=== PATIENT | female | born 1960 | race Caucasian/White ===

== ENCOUNTER 2018-07-18 15:52 | Outpatient (REF) | payer OTHER, SELFPAY ==
[2018-07-18 20:54] LABS: ALT 101 U/L (12-78); AST 73 U/L (15-37); Alkaline Phosphatase 181 U/L (46-116); Anion Gap 10.3 mmol/L (3-11); BUN 12 mg/dL (7-18); Bilirubin, Total 0.4 mg/dL (0.2-1.0); CO2 25.7 mmol/L (21.0-32.0); CREATININE 0.91 mg/dL (0.55-1.02); Calcium 9.2 mg/dL (8.5-10.1); Chloride 105 mmol/L (98-107); Cholesterol 226 mg/dL (50-200); HDL Cholesterol 55 mg/dL (40-60); LDL CHOLESTEROL 147 mg/dL (<100); Sodium 141 mmol/L (136-145); Total Protein 7.8 g/dL (6.4-8.2); Triglyceride 207 mg/dL (30-150)
[2018-07-18 21:51] LABS: Glucose 84 mg/dL (70-100)
== END 2018-07-18 16:12 ==
LOC: NCHCN 15:52
PROVIDERS: PCP Specialist/Technologist Athletic Trainer; Visit Provider Specialist/Technologist Athletic Trainer
DX: R74.0 Nonspecific elevation of levels of transaminase and lactic acid dehydrogenase [LDH] (principal); E78.5 Hyperlipidemia, unspecified; R94.8 Abnormal results of function studies of other organs and systems; Z79.899 Other long term (current) drug therapy
CPT/HCPCS: 80053; 80061; 83721; 83735

== ENCOUNTER 2018-08-14 06:18 | Emergency (ER) | payer OTHER, SELFPAY ==
[2018-08-14 06:20] VITALS: BP 177/89; PULSE 90; RESP 20; TEMP 36.6; O2SAT 99
[2018-08-14 06:29] LABS: Bilirubin Negative (Negative); Blood Negative (Negative); Clarity Sl Cloudy; Glucose Negative (Negative); Ketones Negative (Negative); Leukocyte Esterase Negative (Negative); Nitrite Negative (Negative); Specific Gravity >= 1.030 (1.005-1.025); Urobilinogen 0.2 EU/dL (Up TO 0.2); pH 5.5 (5-8)
--- NOTE | 2018-08-14 06:57 | DI.CT_ITS ---
SYMPTOMS/DIAGNOSIS: LT FLANK PAIN NONCONTRAST CT ABDOMEN AND PELVIS: Comparison is made with noncontrast enhanced exam dated 4Aug17. The liver is mildly enlarged and shows fatty infiltration. There is no biliary dilatation. A small hypodensity is again noted at the dome of the right lobe. The gallbladder , spleen, pancreas and right adrenal are unremarkable. There is a stable tiny left adrenal adenoma and small bilateral renal cysts. No renal calculi or hydronephrosis is seen. The bladder is nearly empty. The patient is status post appendectomy and hysterectomy. No bowel dilatation or inflammatory changes are seen. There is mild diverticulosis but no evidence of diverticulitis. The aorta again shows calcification. The lung bases are clear. IMPRESSION: No acute abnormality is identified. Incidental findings as mentioned above.
--- NOTE | 2018-08-14 06:58 | W.ED.GENAD ---
Discharge Plan Disposition Patient Disposition: HOME Condition: Good Discharge Details Chief Complaint: FlankPain Clinical Impression: Abdominal pain Primary Care Provider: Fareed Durant ED Provider: Anup Mallory Meds and New Rx's Prescriptions: Continue aspirin [Aspir-81] 81 MG tablet,delayed release (DR/EC) 81 mg PO DAILY RF: 0 amlodipine [Norvasc] 10 MG tablet 10 mg PO DAILY RF: 0 hydroxyzine HCl 25 MG tablet 25 mg PO TID PRN PRNRF: 0 loratadine 10 MG tablet 10 mg PO DAILY Qty: 30 RF: 0 Discharge Instructions Instructions: Abdominal Pain (ED) Additional Instructions: Go home and rest today. Drink plenty of fluids to stay hydrated. Use Tylenol if needed for pain. Follow-up with primary care next week if not better. Return to ED if fever, worsening, persistent persistent vomiting. Referrals: Fareed Durant [Primary Care Provider] - Medical Decision Making Patient presenting with complaint of left abdominal pain radiating around to the flank into the back. She has had since last week but is been getting worse. She has a benign abdomen on exam. She does not have costovertebral angle tenderness. Urine is negative for blood but her symptoms suggest possible stone. She has no history of stone. Could also be pancreatitis though she has no nausea/vomiting. She actually looks relatively well. We will go ahead and order stone study. Will place IV to give Toradol and check laboratory studies. Patient's labs are ok. Her LFTs are slightly elevated but are baseline elevated and comparable to previous studies. Her CBC and BMP are fine. Urine is negative. Stone study is negative. There is no acute pathology noted. Stable fatty liver and adrenal adenoma seen again. So, no clear etiology for pain. Does not have surgical abdomen. Patient can go home, rest, drink fluids and use Tylenol if needed for pain. Follow up with PCP next week if not better. Return to ED for fever, persistent vomiting, worsening pain. HPI General Mode of arrival: ambulatory. Date/Time Provider Initiated Documentation: 08/14/18 06:49. Limitations to Documentation: no limitations. Information obtained by: patient. HPI Narrative: Patient presents to ED with left abdominal pain radiating around to the flank into the back. She has had this since last week but has been getting worse. She has no urinary symptoms. She has no nausea vomiting. She is able to eat and drink although eating seems to make it worse. She has no urinary symptoms. She has had some diarrhea on and off. She has no bloody stool. She had chills but no fever that she is aware of. No cough or shortness of breath. Very fleeting intermittent chest pain not lasting even seconds. Try to go to work but was sent home because she was complaining of pain. She decided to come here. Related Data Home Medications Medication Instructions Recorded Confirmed amlodipine [Norvasc] 10 mg PO DAILY 06/29/16 08/14/18 aspirin [Aspir-81] 81 mg PO DAILY 06/29/16 08/14/18 loratadine 10 mg PO DAILY #30 tab 04/16/17 08/14/18 hydroxyzine HCl 25 mg PO TID PRN PRN 06/04/17 08/14/18 Previous Rx's Medication Instructions Recorded loratadine 10 mg PO DAILY #30 tab 04/16/17 Allergies Allergy/AdvReac Type Severity Reaction Status Date / Time No Known Allergies Allergy Unverified 08/14/18 06:26 General Stated Complaint: FlankPain YARELI: 3 Review of Systems Constitutional Reports chills, Denies fever(s), Denies headache(s), Denies malaise, Denies poor appetite and Denies weakness Eyes Denies eye discharge and Denies eye pain ENT Denies otalgia, Denies headache(s), Denies nasal congestion and Denies sore throat Cardiovascular Reports chest pain (fleeting), Denies diaphoresis, Denies pedal edema, Denies edema, Denies lightheadedness, Denies palpitations and Denies dyspnea Respiratory Denies chest congestion and Denies dyspnea Gastrointestinal Reports abdominal pain, Denies hematochezia, Reports diarrhea, Denies nausea and Denies vomiting Genitourinary Denies hematuria, Denies dysuria, Denies pelvic pain and Reports flank pain Musculoskeletal Reports back pain, Denies myalgias, Denies arthralgias and Denies numbness Integumentary/Breasts Reports rash Neurologic Denies headache(s), Denies numbness and Denies weakness Endocrine Denies palpitations PFSH Family History Mother Essential hypertension Father Patient's father is Medical History Anxiety Hypertension Social History Smoking/Tobacco Use Status: Former Tobacco Use Surgical History Appendectomy Colonoscopy - IV Sedation Ligation of fallopian tube hysterectomy Exam Const General: cooperative and no acute distress Orientation: alert and oriented x3 HENMT Head: normocephalic and atraumatic Mouth: moist mucous membranes Eyes Sclera: sclerae normal Neck Neck: trachea midline and supple Resp Effort & Inspection: normal respiratory effort Auscultation: clear to auscultation bilaterally Cardio Rate: regular rate Rhythm: regular rhythm Heart Sounds: S1 normal and S2 normal GI Inspection: normal to inspection Palpation: soft, not firm, no guarding and nontender Auscultation: normal bowel sounds Back/Spine/Pelvis Back: no CVA tenderness Skin General skin exam: no rashes or lesions noted Neuro General: alert, oriented x3, no focal motor deficits and CN's II-XI intact bilaterally Extrem General: normal to inspection, full ROM and no clubbing, cyanosis or edema Course Vital Signs Temperature 97.9 F 08/14/18 06:20 Pulse 90 08/14/18 06:20 Respiratory Rate 20 08/14/18 06:20 Blood Pressure 177/89 H 08/14/18 06:20 Pulse Oximetry 99 08/14/18 06:20 Temperature 97.9 F 08/14/18 06:20 Temperature Source Skin 08/14/18 06:20 Pulse 90 08/14/18 06:20 Respiratory Rate 20 08/14/18 06:20 Respiratory Effort Non-Labored 08/14/18 06:24 Blood Pressure 177/89 H 08/14/18 06:20 Blood Pressure Position Sitting 08/14/18 06:20 Pulse Oximetry 99 08/14/18 06:20 Oxygen Delivery Method Room Air 08/14/18 06:20 Oxygen Flow Rate 0 08/14/18 06:20 Pain Level 8 08/14/18 06:20 Lab/Test Results Lab/Test Results: Laboratory Tests Range/Units 08/14/18 06:23 Urine Color (Yellow) Yellow Urine Clarity Sl cloudy Urine pH (5-8) 5.5 Ur Specific [place] (1.005-1.025) >= 1.030 H Urine Protein (Negative) mg/dL Negative Urine Ketones (Negative) mg/dL Negative Urine Blood (Negative) Negative Urine Nitrite (Negative) Negative Urine Bilirubin (Negative) Negative Urine Urobilinogen (Up TO 0.2) EU/dL 0.2 Ur Leukocyte Esterase (Negative) Negative Urine Glucose (Negative) mg/dL Negative
[2018-08-14] MEDS: Ketorolac 30 MG/ML VIAL IVP (07:10)
[2018-08-14 07:16] LABS: Abs Immature Grans 0.02 k/cumm (0.0-0.09); Absolute Basophil Count 0.08 k/cumm (0.0-0.2); Absolute Eosinophil Count 0.11 k/cumm (0.0-0.7); Absolute Lymphocyte Count 2.37 k/cumm (1.2-3.4); Absolute Monocyte Count 0.48 k/cumm (0.11-0.7); Absolute Neutrophil Count 4.71 k/cumm (1.2-6.7); Eosinophils % 1.4; HGB 14.4 g/dL (12.0-15.5); Immature Grans % 0.3; Lymphocytes % 30.5; Mean Corp. HGB Concentration 34.3 g/dL (32.0-36.0); Mean Corpuscular Hemoglobin 31.2 pg (27.0-33.0); Mean Corpuscular Volume 90.9 fL (80-95); Mean Platelet Volume 10.8 fL (8.0-11.0); Monocytes % 6.2; Neutrophils % 60.6; Platelet Count 193 x1000/uL (130-400); RBC 4.62 m/cumm (4.00-5.20); White Blood Cell Count 7.77 k/cumm (4.4-10.8)
[2018-08-14 07:29] LABS: ALT 95 U/L (12-78); AST 60 U/L (15-37); Albumin 3.5 g/dL (3.4-5.0); Alkaline Phosphatase 166 U/L (46-116); BUN 11 mg/dL (7-18); Bilirubin, Total 0.4 mg/dL (0.2-1.0); Calcium 9.1 mg/dL (8.5-10.1); Chloride 103 mmol/L (98-107); Glucose 150 mg/dL (70-100); Lipase 126 U/L (73-393); Potassium 3.7 mmol/L (3.5-5.1); Sodium 141 mmol/L (136-145); Total Protein 7.7 g/dL (6.4-8.2)
--- NOTE | 2018-08-14 07:44 | DI.VRAD_ITS ---
EXAM: CT Abdomen and Pelvis Without Intravenous Contrast EXAM DATE/TIME: 08/14/2018 6:59 AM CLINICAL HISTORY: 58 years old, female; Pain; Abdominal pain; Flank; Left upper quadrant (luq) TECHNIQUE: Axial computed tomography images of the abdomen and pelvis without intravenous contrast. Coronal and sagittal reformatted images were created and reviewed. COMPARISON: CT ABD PELVIS WITH CONTRAST 05/25/2017 6:06 PM FINDINGS: Limitations: Evaluation is somewhat limited by lack of IV contrast. Lower thorax: The visualized lung bases are essentially clear. ABDOMEN: Liver: The liver is fatty in density. It contains a similar 8mm hypodense lesion at the dome. Gallbladder and bile ducts: No gallstones are evident, but ultrasound would be more sensitive. Pancreas: The pancreas is grossly unremarkable in appearance. Spleen: The spleen is grossly unremarkable in appearance. Adrenals: There is a similar 1.6 cm left adrenal adenoma. The right adrenal gland appears grossly unremarkable. Kidneys and ureters: There is no hydronephrosis, and no renal or ureteral calculus is identified. There are again bilateral renal cysts. Stomach and bowel: The unopacified small bowel is not significantly distended to suggest obstruction. There is again minor sigmoid colonic diverticulosis without evidence for diverticulitis. The large bowel is otherwise grossly unremarkable in appearance. Appendix: There again appears to have been prior appendectomy. PELVIS: Bladder: Unremarkable as visualized. Reproductive: Unremarkable as visualized. ABDOMEN and PELVIS: Intraperitoneal space: Normal. No free air. No significant fluid collection. Bones/joints: Degenerative changes again involve the spine and hips. Soft tissues: There are similar small fat containing bilateral inguinal hernias. Vasculature: The abdominal aorta is nonaneurysmal. Atherosclerotic vascular calcifications are again present. Lymph nodes: No gross pathologic lympadenopathy is evident. IMPRESSION: No hydronephrosis, renal or ureteral calculus or other gross acute abnormality identified. Nonurgent findings are similar to 05/25/17 as above. Depending on suspected etiology of symptoms, consider a targeted ultrasound or contrast enhanced exam. Dictated and Authenticated by: Anton Rhoades MD. Ordering:THIERRY BABB MD
[2018-08-14 07:50] VITALS: BP 121/65; PULSE 82; RESP 16; TEMP 36.6; O2SAT 97
== END 2018-08-14 08:12 | disposition home or self-care (01) ==
PROVIDERS: Emergency Provider Emergency Medicine; PCP Specialist/Technologist Athletic Trainer
DX: R10.32 Left lower quadrant pain (principal); I10 Essential (primary) hypertension
CPT/HCPCS: 36415; 80053; 83690; 96374; 99284; 74176; 81003; 85025; 99285; J1885

== ENCOUNTER 2019-01-15 20:23 | Outpatient (REF) | payer OTHER, SELFPAY ==
[2019-01-15 20:12] LABS: Abs Immature Grans 0.02 k/cumm (0.0-0.09); Absolute Basophil Count 0.05 k/cumm (0.0-0.2); Absolute Eosinophil Count 0.24 k/cumm (0.0-0.7); Absolute Lymphocyte Count 3.93 k/cumm (1.2-3.4); Absolute Monocyte Count 0.75 k/cumm (0.11-0.7); Absolute Neutrophil Count 3.83 k/cumm (1.2-6.7); Basophils % 0.6; Eosinophils % 2.7; HCT 39.7 % (36.0-46.0); HGB 13.4 g/dL (12.0-15.5); Immature Grans % 0.2; Lymphocytes % 44.6; Mean Corp. HGB Concentration 33.8 g/dL (32.0-36.0); Mean Corpuscular Hemoglobin 31.2 pg (27.0-33.0); Mean Corpuscular Volume 92.3 fL (80-95); Mean Platelet Volume 11.9 fL (8.0-11.0); Monocytes % 8.5; Neutrophils % 43.4; Platelet Count 224 x1000/uL (130-400); RBC Distribution Width 12.4 % (11.7-14.6); White Blood Cell Count 8.82 k/cumm (4.4-10.8)
[2019-01-15 20:45] LABS: ALT 79 U/L (12-78); AST 51 U/L (15-37); Albumin 4.2 g/dL (3.4-5.0); Alkaline Phosphatase 183 U/L (46-116); Anion Gap 11.8 mmol/L (3-11); BUN 14 mg/dL (7-18); Bilirubin, Total 0.3 mg/dL (0.2-1.0); CO2 27.2 mmol/L (21.0-32.0); CREATININE 1.02 mg/dL (0.55-1.02); Calcium 9.6 mg/dL (8.5-10.1); Chloride 104 mmol/L (98-107); Creatine Kinase 398 U/L (26-192); Estimated GFR 55.66 (mL/min/1.73m2); Glucose 105 mg/dL (70-100); Lipase 169 U/L (73-393); Potassium 3.7 mmol/L (3.5-5.1); Sodium 143 mmol/L (136-145); Total Protein 8.1 g/dL (6.4-8.2)
[2019-01-15 21:03] LABS: GGT 44 U/L (5-55)
== END 2019-01-15 20:43 ==
LOC: NCHCN 20:23
PROVIDERS: PCP Specialist/Technologist Athletic Trainer; Visit Provider Specialist/Technologist Athletic Trainer
DX: R10.9 Unspecified abdominal pain (principal)
CPT/HCPCS: 80053; 82550; 83690; 82977; 85025

== ENCOUNTER 2019-02-04 00:32 | Outpatient (CLI) | payer OTHER, SELFPAY ==
[2019-02-04 09:47] LABS: CREATININE 0.81 mg/dL (0.55-1.02)
== END 2019-02-04 00:52 ==
PROVIDERS: Nurse Practitioner Family; PCP Specialist/Technologist Athletic Trainer; Visit Provider Specialist/Technologist Athletic Trainer
DX: I10 Essential (primary) hypertension (principal); Z13.89 Encounter for screening for other disorder
CPT/HCPCS: 36415; 82565

== ENCOUNTER 2019-02-07 00:48 | Outpatient (CLI) | payer OTHER, SELFPAY ==
--- NOTE | 2019-02-07 10:27 | DI.CT_ITS ---
SYMPTOM/DIAGNOSIS: ABD PAIN, R10.[address]: CT examination of the abdomen and pelvis was performed with a bolus infusion of 100 cc's of Omnipaque 350 and ingestion of dilute barium. Images obtained through the lung bases are unremarkable. Liver and spleen appear normal. Pancreas appears intact. Gallbladder and bile ducts are unremarkable. Abdominal aorta is of normal diameter and no major vascular abnormality is seen. No significant abdominal wall hernia is seen. No abdominal or pelvic adenopathy. Adrenals and kidneys are unremarkable except for incidental presumed small bilateral renal cysts. The appendix appears to have been surgically removed. No evidence of diverticulitis or bowel obstruction. The patient has reportedly had a hysterectomy. No pelvic mass identified by CT criteria. CONCLUSION: No evidence of acute intra-abdominal process.
[2019-02-07] MEDS: Omnipaque 350 MG/ML 50 ML BTL PO (10:43)
[2019-02-07] MEDS: Omnipaque 350 MG/ML 100 ML BTL IJ (10:44)
[2019-02-07] MEDS: Breeza Beverage 473 ML BTL PO ×2 (10:44→10:46)
== END 2019-02-07 01:08 ==
PROVIDERS: PCP Specialist/Technologist Athletic Trainer; Visit Provider Specialist/Technologist Athletic Trainer
DX: R10.9 Unspecified abdominal pain (principal); N28.1 Cyst of kidney, acquired
CPT/HCPCS: 74177; J3490; Q9967